=== PATIENT | female | born 1955 | race African-American/Black ===

== ENCOUNTER 2016-10-01 13:17 | Outpatient (CLI) | payer OTHER ==
[2016-10-01 13:52] LABS: #Basophils 0.1 thou/uL (0.0-0.2); #Eosinphils 0.5 thou/uL (0.0-0.7); #Lymphocytes 2.2 thou/uL (1.20-3.40); #Monocytes 0.6 thou/uL (0.11-0.59); #Neutrophils 2.3 thou/uL (1.40-6.50); %Basophils 1.1 % (0.0-1.0); %Eosinophils 8.4 % (0.0-10.0); %Lymphocytes 39.4 % (21.0-51.0); %Monocytes 10.2 % (0.0-10.0); %Neutrophils 40.8 % (42.0-75.0); Hemoglobin 14.1 g/dL (12.0-16.0); Mean Corpuscular Hemoglobin 30.6 pg (27.0-31.0); Mean Corpuscular Volume 95.5 fl (81.0-99.0); Mean Platelet Volume 8.2 fL (7.4-10.4); Platelet Count 274 thou/uL (130-400); RBC Distribution Width 12.7 % (11.5-14.5); Red Blood Cell (RBC) Count 4.63 mill/uL (4.20-5.40); White Blood Cell (WBC) Count 5.6 thou/uL (4.8-10.8)
[2016-10-01 14:10] LABS: Hemoglobin A1c 5.6 % (4.0-6.0)
[2016-10-01 14:12] LABS: ALT (SGPT) 31 U/L (8-55); AST (SGOT) 30 U/L (5-34); Albumin 4.1 g/dL (3.5-5.0); Alkaline Phosphatase 114 U/L (40-150); Anion Gap 16 mmol/L (10-20); BUN (Urea Nitrogen) 13 mg/dL (9.8-20.1); Bilirubin, Total 0.4 mg/dL (0.2-1.2); Calc. Creatinine Clearance 0 mL/min (70-130); Carbon Dioxide 24 mmol/L (22-29); Cardiac Risk 3.9 (Less than 4.5); Chloride 103 mmol/L (98-107); Cholesterol 201 mg/dl (< 200 Desired); Estimated GFR-MDRD 71; Globulin 4.5 g/dL (2.4-3.5); Glucose 100 mg/dL (70-105); HDL Cholesterol 52 mg/dL (>60 Neg Risk); LDL Cholesterol, Calculated 112 mg/dL; Potassium 3.4 mmol/L (3.5-5.1); Protein, Total 8.6 g/dL (6.0-8.3); Sodium 140 mmol/L (136-145); Triglycerides 183 mg/dL (Less than 150)
[2016-10-01 22:23] LABS: Bilirubin Negative (Negative); Blood, Urine Negative (Negative); Clarity Clear (Clear); Glucose, Urine (Dipstick) Negative (Negative); Leukocyte Negative (Negative); Nitrite Negative (Negative); Protein, Urine (Dipstick) Negative (Neg-Trace); Urobilinogen 0.2 mg/dL (0.2-1.0)
== END 2016-10-01 13:18 | disposition home or self-care (01) ==
LOC: NAVSJIPCSP 13:17
PROVIDERS: ATTEND Internal Medicine
DX: I10 Essential (primary) hypertension (principal); J06.9 Acute upper respiratory infection, unspecified; R06.09 Other forms of dyspnea
CPT/HCPCS: 80053; 80061; 81003; 83036; 83880; 84443; 85025

== ENCOUNTER 2016-10-01 15:36 | Outpatient (CLI) | payer OTHER ==
--- NOTE | 2016-10-01 16:54 | RAD ---
CHEST 2 VIEWS: Date: 10/01/16 HISTORY: Shortness of breath. Dyspnea. COMPARISON: 02/15/14. FINDINGS: Normal cardiac silhouette. Pulmonary vessels and hilum are normal. Costophrenic angles are clear. No mass. No consolidation. No pneumothorax or osseous abnormalities. IMPRESSION: No acute cardiopulmonary process. POS: [facility]
== END 2016-10-01 15:37 | disposition home or self-care (01) ==
LOC: NAV RAD 15:36
PROVIDERS: ATTEND Internal Medicine
DX: R06.09 Other forms of dyspnea (principal)
CPT/HCPCS: 71020; 80053; 80061; 81003; 83036; 83880; 84443; 85025

== ENCOUNTER 2016-10-05 11:31 | Outpatient (CLI) | payer OTHER | END 2016-10-05 11:32 | disposition home or self-care (01) | LOC: NAV ULT 11:31 | PROVIDERS: ATTEND Internal Medicine | DX: R06.09 Other forms of dyspnea (principal); I07.1 Rheumatic tricuspid insufficiency; I35.8 Other nonrheumatic aortic valve disorders | CPT/HCPCS: 93306 ==

== ENCOUNTER 2017-04-30 14:30 | Outpatient (CLI) | payer OTHER ==
--- NOTE | 2017-04-30 16:31 | RAD ---
LUMBAR SPINE: 04/30/17 Three views. HISTORY: Low back pain with radiculopathy. Mild wedging of the T12 vertebra. Osteophytes are seen in the lower thoracic and upper lumbar spine. Slight anterolisthesis at L4-5. Loss of disc space at L5-S1. Facet hypertrophy. IMPRESSION: There are moderate degenerative changes as described above with mild anterior wedging of the T12 vert ebra. POS: [facility]
--- NOTE | 2017-04-30 16:36 | RAD ---
RIGHT HIP 04/30/17 INDICATION: Pain, right hip radicular pain. FINDINGS: There is moderate osteoarthritis of the right hip. No acute fracture or dislocation. Degenerative jose d nges at the right SI joint is present. IMPRESSION: Moderate osteoarthritis of the right hip without acute fracture. POS: [facility]
== END 2017-04-30 14:31 | disposition home or self-care (01) ==
LOC: NAV RAD 14:30
PROVIDERS: ATTEND Internal Medicine
DX: M70.61 Trochanteric bursitis, right hip (principal); M54.41 Lumbago with sciatica, right side; M16.11 Unilateral primary osteoarthritis, right hip; M47.816 Spondylosis without myelopathy or radiculopathy, lumbar region
CPT/HCPCS: 72100

== ENCOUNTER 2017-07-02 14:36 | Emergency (ER) | payer OTHER ==
[2017-07-02] MEDS ORDERED: Ondansetron ODT 4 MG TAB ONE (15:11)
[2017-07-02] MEDS ORDERED: Ketorolac Tromethamine 30 MG/ML VIAL ONE (15:11)
--- NOTE | 2017-07-02 15:32 | RAD ---
CHEST ONE VIEW: 07/02/17 HISTORY: Chest injury. COMPARISON: 02/15/14. FINDINGS: The cardiac silhouette is magnified by projection. Pulmonary vasculature is upper limits of normal. T here is no confluent air space consolidation, pneumothorax, or pleural fluid evident. IMPRESSION: Borderline pulmonary vascular congestion. POS: [facility]
[2017-07-02 15:35] LABS: #Basophils 0.1 thou/uL (0.0-0.2); #Eosinphils 0.3 thou/uL (0.0-0.7); #Lymphocytes 3.2 thou/uL (1.20-3.40); #Monocytes 0.5 thou/uL (0.11-0.59); #Neutrophils 4.5 thou/uL (1.40-6.50); %Basophils 1.1 % (0.0-1.0); %Eosinophils 3.1 % (0.0-10.0); %Lymphocytes 36.8 % (21.0-51.0); %Monocytes 6.3 % (0.0-10.0); %Neutrophils 52.7 % (42.0-75.0); ALT (SGPT) 21 U/L (8-55); AST (SGOT) 16 U/L (5-34); Alkaline Phosphatase 115 U/L (40-150); Anion Gap 15 mmol/L (10-20); BUN (Urea Nitrogen) 17 mg/dL (9.8-20.1); Bilirubin, Total 0.2 mg/dL (0.2-1.2); Calc. Creatinine Clearance 0 mL/min (70-130); Calcium 9.8 mg/dL (7.8-10.44); Carbon Dioxide 26 mmol/L (22-29); Chloride 103 mmol/L (98-107); Estimated GFR-MDRD 74; Globulin 3.9 g/dL (2.4-3.5); Glucose 113 mg/dL (70-105); Hemoglobin 13.5 g/dL (12.0-16.0); Mean Corpuscular HGB CONC 32.8 g/dL (32.0-36.0); Mean Corpuscular Hemoglobin 30.9 pg (27.0-31.0); Mean Corpuscular Volume 94.3 fl (81.0-99.0); Mean Platelet Volume 9.1 fL (7.4-10.4); Platelet Count 331 thou/uL (130-400); Potassium 3.5 mmol/L (3.5-5.1); Protein, Total 7.9 g/dL (6.0-8.3); Red Blood Cell (RBC) Count 4.36 mill/uL (4.20-5.40); Sodium 140 mmol/L (136-145); White Blood Cell (WBC) Count 8.6 thou/uL (4.8-10.8)
--- NOTE | 2017-07-02 15:39 | RAD ---
RIGHT SHOULDER 3 VIWS: HISTORY: Fall. Right shoulder injury. FINDINGS: Acromioclavicular and glenohumeral alignment are maintained. There is osteophytosis and joint space narrowing. Tiny well-corticated ossification just lateral to the humeral head may represent dystroph ic calcification within the rotator cuff. No displaced fractures are apparent. IMPRESSION: Osteoarthritis right shoulder. No acute osseous abnormalities are demonstrated. POS: [facility]
--- NOTE | 2017-07-02 15:54 | RAD ---
LEFT WRIST 3 VIEWS: Date: 07/02/17 HISTORY: Trauma. Left wrist pain. FINDINGS/IMPRESSION: No acute fracture or dislocation is seen. If symptoms do not improve, a follow-up exam should be obtained in 7-10 days. POS: [facility]
== END 2017-07-02 16:03 | disposition home or self-care (01) ==
LOC: NAV ERS 14:36
DX: S43.401A Unspecified sprain of right shoulder joint, initial encounter (principal); S63.501A Unspecified sprain of right wrist, initial encounter; K21.9 Gastro-esophageal reflux disease without esophagitis; Z79.899 Other long term (current) drug therapy; Z79.82 Long term (current) use of aspirin; V49.9XXA Car occupant (driver) (passenger) injured in unspecified traffic accident, initial encounter
CPT/HCPCS: 71045; 80053; 85025; 96372; J1885; Q0162

== ENCOUNTER 2017-08-18 20:21 | Emergency (ER) | payer OTHER ==
[2017-08-18] MEDS ORDERED: cefTRIAXone\\ROCEPHIN 1 GM VIAL ONE (21:11)
[2017-08-18] MEDS ORDERED: Lidocaine 1% 20 ML MDV ONE (21:11)
== END 2017-08-18 21:35 | disposition home or self-care (01) ==
LOC: NAV ERS 20:21
DX: J20.9 Acute bronchitis, unspecified (principal); J01.90 Acute sinusitis, unspecified; K21.9 Gastro-esophageal reflux disease without esophagitis; Z79.82 Long term (current) use of aspirin; Z79.899 Other long term (current) drug therapy
CPT/HCPCS: 87081; 87430; 96372; J0696; J2001

== ENCOUNTER 2017-09-30 16:47 | Outpatient (CLI) | payer OTHER ==
--- NOTE | 2017-09-30 17:30 | RAD ---
THREE VIEWS OF THE LEFT ANKLE: 09/30/17 INDICATION: Left ankle pain. FINDINGS: There are soft tissue swelling surrounding the left ankle as well as circumferentially involving the distal left foreleg. No acute fracture or subluxation is evident. Enthesopathic change is seen off th e plantar calcaneus. The visualized aspects of the hindfoot are within normal limits. IMPRESSION: Soft tissue swelling of the lower left foreleg and left hindfoot without evidence of acute osseous ab normality. POS: [facility]
== END 2017-09-30 16:48 | disposition home or self-care (01) ==
LOC: NAV RAD 16:47
PROVIDERS: ATTEND Internal Medicine
DX: M79.89 Other specified soft tissue disorders (principal); M25.572 Pain in left ankle and joints of left foot

== ENCOUNTER 2017-12-26 01:31 | Emergency (ER) | payer OTHER ==
[2017-12-26] MEDS ORDERED: Acetaminophen/Codeine 30-300mg Tablet ONE (01:47)
[2017-12-26] MEDS ORDERED: AMOXicillin 250 MG CAP ONE (01:47)
== END 2017-12-26 01:55 | disposition home or self-care (01) ==
LOC: NAV ERS 01:31
DX: K02.9 Dental caries, unspecified (principal); K21.9 Gastro-esophageal reflux disease without esophagitis; Z79.82 Long term (current) use of aspirin; Z79.899 Other long term (current) drug therapy
CPT/HCPCS: 99282

== ENCOUNTER 2019-03-28 07:52 | Emergency (ER) | payer OTHER ==
[2019-03-28 08:22] LABS: #Basophils 0.1 thou/uL (0.0-0.2); #Eosinphils 0.3 thou/uL (0.0-0.7); #Lymphocytes 2.1 thou/uL (1.20-3.40); #Monocytes 0.3 thou/uL (0.11-0.59); #Neutrophils 2.8 thou/uL (1.40-6.50); %Basophils 1.3 % (0.0-1.0); %Eosinophils 4.9 % (0.0-10.0); %Lymphocytes 37.1 % (21.0-51.0); %Monocytes 5.6 % (0.0-10.0); %Neutrophils 51.1 % (42.0-75.0); Hemoglobin 13.2 g/dL (12.0-16.0); Mean Corpuscular Hemoglobin 33.1 pg (27.0-31.0); Mean Platelet Volume 8.8 fL (7.4-10.4); Platelet Count 262 thou/uL (130-400); RBC Distribution Width 14.1 % (11.5-14.5); Red Blood Cell (RBC) Count 3.99 mill/uL (4.20-5.40); White Blood Cell (WBC) Count 5.6 thou/uL (4.8-10.8)
[2019-03-28 08:40] LABS: ALT (SGPT) 18 U/L (8-55); AST (SGOT) 18 U/L (5-34); Albumin 4.2 g/dL (3.4-4.8); Alkaline Phosphatase 93 U/L (40-110); Anion Gap 15 mmol/L (10-20); BUN (Urea Nitrogen) 14 mg/dL (9.8-20.1); Bilirubin, Total 0.5 mg/dL (0.2-1.2); Calc. Creatinine Clearance 0 mL/min (70-130); Calcium 9.8 mg/dL (7.8-10.44); Carbon Dioxide 25 mmol/L (23-31); Chloride 104 mmol/L (98-107); Estimated GFR-MDRD 70; Globulin 3.5 g/dL (2.4-3.5); Glucose 96 mg/dL (80-115); Potassium 3.8 mmol/L (3.5-5.1); Protein, Total 7.7 g/dL (6.0-8.3); Sodium 140 mmol/L (136-145)
[2019-03-28] MEDS ORDERED: Aspirin Chewable 81 MG TAB ONE (08:52)
--- NOTE | 2019-03-28 09:03 | RAD ---
FRONTAL VIEW CHEST: COMPARISON: 07/02/2017. INDICATION: Pain. FINDINGS: There is stable prominence of the cardiomediastinal silhouette. No lobar consolidation, effusion, or pneumothorax. IMPRESSION: Stable chest. POS: [facility]
== END 2019-03-28 10:33 | disposition short-term general hospital (02) ==
LOC: NAV ERS 07:52
DX: R07.2 Precordial pain (principal); K21.9 Gastro-esophageal reflux disease without esophagitis; I10 Essential (primary) hypertension; Z79.82 Long term (current) use of aspirin; Z79.899 Other long term (current) drug therapy
CPT/HCPCS: 71045; 80053; 83880; 84484; 85025; 93005

== ENCOUNTER 2020-05-02 09:24 | Emergency (ER) | payer BC ==
[2020-05-02] MEDS ORDERED: HYDROcodone/Acetaminophen 10/325 mg Tablet ONE (09:54)
--- NOTE | 2020-05-02 10:19 | RAD ---
EXAM: XR Shoulder Lt 3 View STANDARD PROVIDED CLINICAL HISTORY: Pain FINDINGS: There is no evidence for fracture or other acute osseous abnormality. Alignment appears anatomic. Alejandra nt spaces appear preserved. Osteophyte formation is seen arising from the humeral head. Radiolucencies within the humeral head may reflect postoperative change. The visualized left lung fie ld appears clear. IMPRESSION: No evidence for an acute osseous abnormality. If there is persistent clinical concern, conservative m anagement and follow-up imaging advised.
== END 2020-05-02 10:40 | disposition home or self-care (01) ==
LOC: NAV ERS 09:24
DX: M75.22 Bicipital tendinitis, left shoulder (principal); K21.9 Gastro-esophageal reflux disease without esophagitis; I10 Essential (primary) hypertension; Z79.82 Long term (current) use of aspirin; Z79.899 Other long term (current) drug therapy

== ENCOUNTER 2021-02-11 07:39 | Emergency (ER) | payer BC ==
[2021-02-11] MEDS ORDERED: Sodium Chloride 0.9% 1,000 ML ONE (08:24)
[2021-02-11 09:02] LABS: Hemoglobin 13.8 g/dL (12.0-16.0); Mean Corpuscular HGB CONC 32.6 g/dL (32.0-36.0); Mean Corpuscular Hemoglobin 33.4 pg (27.0-31.0); Red Blood Cell (RBC) Count 4.14 mill/uL (4.20-5.40); White Blood Cell (WBC) Count 6.3 thou/uL (4.8-10.8)
[2021-02-11 09:03] LABS: #Eosinphils 0.4 thou/uL (0.0-0.7); #Lymphocytes 2.1 thou/uL (1.20-3.40); #Monocytes 0.4 thou/uL (0.11-0.59); #Neutrophils 3.3 thou/uL (1.40-6.50); %Basophils 1.4 % (0.0-1.0); %Eosinophils 6.8 % (0.0-10.0); %Monocytes 5.7 % (0.0-10.0); %Neutrophils 52.1 % (42.0-75.0); Mean Platelet Volume 8.8 fL (7.4-10.4); Platelet Count 272 thou/uL (130-400); RBC Distribution Width 13.1 % (11.5-14.5)
[2021-02-11 09:04] LABS: #Basophils 0.1 thou/uL (0.0-0.2)
[2021-02-11 09:06] LABS: ALT (SGPT) 24 U/L (8-55); AST (SGOT) 23 U/L (5-34); Albumin 3.9 g/dL (3.4-4.8); Alkaline Phosphatase 115 U/L (40-110); Anion Gap 14 mmol/L (10-20); BUN (Urea Nitrogen) 13 mg/dL (9.8-20.1); Bilirubin, Total 0.5 mg/dL (0.2-1.2); Calc. Creatinine Clearance 0 mL/min (70-130); Calcium 9.7 mg/dL (7.8-10.44); Carbon Dioxide 26 mmol/L (23-31); Chloride 106 mmol/L (98-107); Globulin 3.7 g/dL (2.4-3.5); Glucose 100 mg/dL (80-115); Potassium 4.3 mmol/L (3.5-5.1); Protein, Total 7.6 g/dL (5.8-8.1); Sodium 142 mmol/L (136-145)
== END 2021-02-11 09:45 | disposition home or self-care (01) ==
LOC: NAV ERS 07:39
DX: E86.0 Dehydration (principal); I10 Essential (primary) hypertension; K21.9 Gastro-esophageal reflux disease without esophagitis; Z79.899 Other long term (current) drug therapy; Z79.82 Long term (current) use of aspirin
CPT/HCPCS: 80053; 83735; 84484; 85025; 93005; 94760; J7050

== ENCOUNTER 2021-09-24 11:15 | Emergency (ER) | payer BC | END 2021-09-24 12:42 | disposition home or self-care (01) | LOC: NAV ERS 11:15 | DX: M94.0 Chondrocostal junction syndrome [Tietze] (principal); K21.9 Gastro-esophageal reflux disease without esophagitis; I10 Essential (primary) hypertension; Z79.899 Other long term (current) drug therapy ==

== ENCOUNTER 2022-01-02 06:09 | Emergency (ER) | payer BC ==
[2022-01-02] MEDS ORDERED: HYDROcodone/Acetaminophen 10/325 mg Tablet ONE (06:47)
== END 2022-01-02 06:55 | disposition home or self-care (01) ==
LOC: NAV ERS 06:09
DX: K02.9 Dental caries, unspecified (principal); K21.9 Gastro-esophageal reflux disease without esophagitis; I10 Essential (primary) hypertension; Z79.899 Other long term (current) drug therapy
CPT/HCPCS: 99282

== ENCOUNTER 2025-01-23 18:05 | Emergency (ER) | payer OTHER ==
[~2025-01-23 18:05] MED LIST: Iopamidol 370 76% 100 ML VIAL ONE
[2025-01-23 19:43] LABS: #Basophils 0.1 thou/uL (0.0-0.2); #Eosinophils 0.1 thou/uL (0.0-0.7); #Lymphocytes 2.2 thou/uL (1.20-3.40); #Monocytes 0.3 thou/uL (0.11-0.59); #Neutrophils 7.0 thou/uL (1.40-6.50); %Basophils 1.0 % (0.0-1.0); %Eosinophils 1.0 % (0.0-10.0); %Lymphocytes 22.4 % (21.0-51.0); %Monocytes 3.5 % (0.0-10.0); %Neutrophils 72.2 % (42.0-75.0); Hematocrit 41.1 % (36.0-47.0); Hemoglobin 13.8 g/dL (12.0-16.0); Mean Corpuscular Hemoglobin 31.1 pg (27.0-31.0); Mean Corpuscular Volume 92.9 fl (78.0-98.0); Platelet Count 322 10x3/uL (130-400); Red Blood Cell (RBC) Count 4.43 mill/uL (4.20-5.40); White Blood Cell (WBC) Count 9.8 10x3/uL (4.8-10.8)
[2025-01-23] MEDS ORDERED: Pantoprazole 40 MG VIAL ONE (19:43)
[2025-01-23] MEDS ORDERED: Ondansetron PF 4 MG/2 ML Vial ONE (19:43)
[2025-01-23 19:56] LABS: Glucose, Urine (Dipstick) Negative (Negative); Leukocyte Trace (Negative); Protein, Urine (Dipstick) Negative (Neg-Trace); Specific Gravity, Urine 1.020 (1.005-1.030)
[2025-01-23 20:02] LABS: CAUTI Indications for Culture Pelvic or flank pain; WBC/HPF 0-3 HPF (0-3)
[2025-01-23 20:03] LABS: Urine Culture Reflex No No
[2025-01-23 20:07] LABS: ALT (SGPT) 12 U/L (Less than 34); AST (SGOT) 17 U/L (11-34); Albumin 4.1 g/dL (3.1-4.5); Alkaline Phosphatase 109 U/L (40-110); Anion Gap 18 mmol/L (10-20); BUN (Urea Nitrogen) 8 mg/dL (9.8-20.1); Bilirubin, Total 0.3 mg/dL (0.3-1.2); Calc. Creatinine Clearance 0 mL/min (70-130); Calcium 9.5 mg/dL (7.8-10.44); Carbon Dioxide 23 mmol/L (23-31); Chloride 105 mmol/L (98-107); Globulin 3.7 g/dL (2.4-3.5); Glucose 131 mg/dL (80-115); Lipase 36 U/L (8-78); Potassium 3.5 mmol/L (3.5-5.1); Sodium 142 mmol/L (136-145)
[2025-01-23 20:08] LABS: Troponin I Less than 0.010 ng/mL (< 0.028)
[2025-01-23] MEDS ORDERED: Lidocaine Viscous Sol 2% 15 ml UD Cup ONE (21:51)
[2025-01-23] MEDS ORDERED: Mag-Al Plus 1200/1200/120 MG (30 mL) UDCUP ONE (21:51)
== END 2025-01-23 23:43 | disposition home or self-care (01) ==
LOC: NAV ERS 18:05
DX: K21.9 Gastro-esophageal reflux disease without esophagitis (principal); I10 Essential (primary) hypertension; Z79.82 Long term (current) use of aspirin; Z79.899 Other long term (current) drug therapy
CPT/HCPCS: 74177; 80053; 81001; 83690; 84484; 85025; 93005; J2270; J2272; J2405; J2470; J7030; Q9967